=== PATIENT | female | born 1965 | race Caucasian/White ===

== ENCOUNTER → 2016-06-30 | Outpatient (CLI) | payer BC ==
[~2016-06-30] MED LIST: AMITRIPTYLINE H10 M1; AMITRIPTYLINE H50 M1 PO; B-121000 MCG PO; CYMBALTA 30MG30 MG PO; CYMBALTA 60MG60 MG PO; MOTRIN 200200 MG/TAB PO; NEURONTIN400 MG/CAP PO; NEURONTIN600 MG/TAB PO; NORCO 325 MG-51 TAB PO; PERCOCET 325 MG1 TA2 PO; PRILOSEC 20MG20 MG PO; PROTONIX 40MG T40 MG PO; XANAX .25M0.25 MG/TA PO; ZANTAC 150MG T150 MG PO
[2016-06-30 12:37] LABS: HEMATOCRIT 38.4 % (37.0-47.0); HEMOGLOBIN 12.8 g/dl (12.5-16.0); MEAN CELL VOLUME 86 fl (80.0-100.0); MEAN CORPUSCULAR HEMOGLOBIN 29 pg (27.0-31.0); MEAN CORPUSCULAR HGB CONC 33 g/dl (33.0-37.0); MEAN PLATELET VOLUME 10.1 fl (7.4-10.4); PLATELET COUNT 358 K/mm3 (130-400); RED BLOOD COUNT 4.46 M/mm3 (4.10-5.30); REDCELL DISTRIBUTION WIDTH-CV 14.8 % (11.5-14.5); WHITE BLOOD COUNT 9.7 K/mm3 (4.8-10.8)
[2016-06-30 13:04] LABS: INFLUENZA B NEGATIVE
[2016-06-30 13:31] LABS: ADD PATHOLOGY DIFF REVIEW NO
[2016-06-30 13:39] LABS: BAND 2 % (0-10); BASOPHIL 2 % (0-2); EOSINOPHIL 4 % (0-4); METAMYELOCYTE 1 % (0-0); NEUTROPHILS 53 % (42.0-75.2); POIKILOCYTOSIS 1+; TOTAL CELLS COUNTED 100
[2016-06-30 13:40] LABS: ANISOCYTOSIS 1+; POLYCHROMASIA 1+
[2016-07-01 17:35] LABS: PROCALCITONIN <0.05 ng/mL (0.00-0.09)
== END ==
LOC: COL.LAB 11:23
PROVIDERS: Internal Medicine Pulmonary Disease
DX: R06.02 Shortness of breath (principal); R05 Cough

== ENCOUNTER → 2016-07-18 | Outpatient (REF) | LOC: WSOH 11:30 | DX: Z01.89 Encounter for other specified special examinations (principal) | CPT/HCPCS: G0463 ==

== ENCOUNTER → 2016-08-19 | Outpatient (REF) | LOC: WSOH 10:30 | DX: Z02.89 Encounter for other administrative examinations (principal) ==

== ENCOUNTER → 2016-10-06 | Outpatient (REF) | LOC: WSOH 10:05 | DX: Z02.89 Encounter for other administrative examinations (principal) ==

== ENCOUNTER 2017-06-16 09:26 | Emergency (ER) | payer BC ==
[~2017-06-16] VITALS: Ht 175.3 cm; Wt 110.0 kg
[~2017-06-16 09:26] MED LIST changes: -NEURONTIN400 MG/CAP PO
[2017-06-16 09:27] VITALS: TEMP 97
[2017-06-16] MEDS ORDERED: REQUIP 1MG T1 MG/TAB PO (09:33)
[2017-06-16] MEDS ORDERED: NORCO 325 MG-51 TAB PO (10:29)
[2017-06-16 11:05] VITALS: BP 140/81; PULSE 85
== END 2017-06-16 11:05 | disposition home or self-care (01) ==
LOC: COL.ER 09:26
DX: S63.502A Unspecified sprain of left wrist, initial encounter (principal); S63.642A Sprain of metacarpophalangeal joint of left thumb, initial encounter; X50.0XXA Overexertion from strenuous movement or load, initial encounter
CPT/HCPCS: Q4021

== ENCOUNTER → 2017-08-03 | Outpatient (CLI) | payer BC ==
[~2017-08-03] VITALS: Ht 172.7 cm; Wt 111.8 kg
[~2017-08-03] MED LIST changes: +REQUIP 1MG T1 MG/TAB PO; +VITAMIN D31000 IU PO
[2017-08-03 13:20] VITALS: BP 122/80; PULSE 80
== END ==
LOC: LIGHT
DX: M15.9 Polyosteoarthritis, unspecified (principal); Z98.84 Bariatric surgery status; M54.5 Low back pain; K21.9 Gastro-esophageal reflux disease without esophagitis; Z68.37 Body mass index [BMI] 37.0-37.9, adult; Z71.3 Dietary counseling and surveillance
CPT/HCPCS: G0463

== ENCOUNTER 2017-08-05 20:45 | Observation (INO) | payer BC ==
[~2017-08-05] VITALS: Ht 172.7 cm; Wt 112.3 kg
[2017-08-05] MEDS ORDERED: NEURONTIN400 MG/CAP PO ×2 (23:40)
[2017-08-05 23:43] VITALS: BP 120/60; PULSE 75; TEMP 97.8
[2017-08-05] MEDS ORDERED: REQUIP0.25 MG PO (23:48)
[2017-08-06 04:59] VITALS: BP 110/58; PULSE 80; TEMP 98.3
[2017-08-06 08:37] VITALS: BP 102/46; PULSE 78; TEMP 98.4
[2017-08-06 12:55] VITALS: BP 134/74; BP 94/39; PULSE 72; TEMP 98.1
[2017-08-06 16:51] VITALS: BP 109/57; PULSE 77; TEMP 98.5
[2017-08-06 19:52] VITALS: BP 115/58; PULSE 90; TEMP 98.3
[2017-08-06 23:42] VITALS: BP 104/48; PULSE 79; TEMP 98.6
[2017-08-07 03:21] VITALS: BP 113/60; PULSE 71; TEMP 97.9
[2017-08-07 07:53] VITALS: BP 141/68; PULSE 75; TEMP 98.4
== END 2017-08-07 09:05 | disposition home or self-care (01) ==
LOC: COL.ER 20:45 → MEDICAL 22:20
DX: S06.0X1A Concussion with loss of consciousness of 30 minutes or less, initial encounter (principal); W22.8XXA Striking against or struck by other objects, initial encounter; Y92.007 Garden or yard of unspecified non-institutional (private) residence as the place of occurrence of the external cause; Z79.899 Other long term (current) drug therapy
CPT/HCPCS: G0378; G0379; J1170; J2405; J7030

== ENCOUNTER → 2018-02-11 | Outpatient (CLI) | payer BC ==
[~2018-02-11] MED LIST changes: +NEURONTIN400 MG/CAP PO; +REQUIP0.25 MG PO
== END ==
LOC: COL.RAD 13:40
DX: M51.16 Intervertebral disc disorders with radiculopathy, lumbar region (principal)

== ENCOUNTER → 2018-03-23 | Outpatient (CLI) | payer BC | LOC: MHCPAIN 10:28 | DX: G89.29 Other chronic pain (principal); M47.817 Spondylosis without myelopathy or radiculopathy, lumbosacral region; M53.3 Sacrococcygeal disorders, not elsewhere classified | CPT/HCPCS: G0463 ==

== ENCOUNTER → 2018-04-01 | Outpatient (CLI) | payer BC | LOC: MHCPAIN 09:14 | DX: M47.817 Spondylosis without myelopathy or radiculopathy, lumbosacral region (principal); M54.16 Radiculopathy, lumbar region | CPT/HCPCS: J1040; Q9967 ==

== ENCOUNTER → 2018-04-27 | Outpatient (CLI) | payer BC | LOC: MHCPAIN 10:33 | DX: G89.29 Other chronic pain (principal); M47.817 Spondylosis without myelopathy or radiculopathy, lumbosacral region; M53.3 Sacrococcygeal disorders, not elsewhere classified | CPT/HCPCS: G0463 ==

== ENCOUNTER → 2018-10-12 | Outpatient (CLI) | payer BC | LOC: MHCPAIN 11:16 | DX: G89.29 Other chronic pain (principal); M47.817 Spondylosis without myelopathy or radiculopathy, lumbosacral region; M53.3 Sacrococcygeal disorders, not elsewhere classified | CPT/HCPCS: G0463 ==

== ENCOUNTER → 2018-10-25 | Outpatient (CLI) | payer BC | LOC: MHCPAIN 12:48 | DX: M47.817 Spondylosis without myelopathy or radiculopathy, lumbosacral region (principal); M54.16 Radiculopathy, lumbar region ==

== ENCOUNTER → 2019-01-13 | Outpatient (CLI) | payer BC | LOC: MHCPAIN 07:25 | DX: G89.29 Other chronic pain (principal); M47.817 Spondylosis without myelopathy or radiculopathy, lumbosacral region; M54.5 Low back pain | CPT/HCPCS: G0463; J1100; J2250; J3010 ==

== ENCOUNTER → 2019-01-17 | Outpatient (CLI) | payer BC | LOC: MHCPAIN 12:08 | DX: M54.5 Low back pain (principal) | CPT/HCPCS: J1100; J2250; J3010 ==

== ENCOUNTER → 2019-07-20 | Outpatient (CLI) | payer BC | LOC: MHCPAIN 10:03 | DX: M47.817 Spondylosis without myelopathy or radiculopathy, lumbosacral region (principal); M54.5 Low back pain; M53.3 Sacrococcygeal disorders, not elsewhere classified; G89.29 Other chronic pain | CPT/HCPCS: G0463 ==

== ENCOUNTER 2019-12-19 14:03 | Emergency (ER) | payer BC ==
[~2019-12-19] VITALS: Ht 175.3 cm; Wt 103.2 kg
[2019-12-19 14:16] VITALS: TEMP 97.7
[2019-12-19] MEDS ORDERED: CYMBALTA 60MG60 MG PO (18:04)
[2019-12-19 18:05] LABS: BASO # 0.1 (0.0-0.2); EOS # 0.1 (0.0-0.7); EOS % 1.4 % (0-4.0); GRAN # 4.3 (1.4-6.5); GRAN % 61.3 % (42.2-75.2); HEMATOCRIT 37.5 % (37.0-47.0); HEMOGLOBIN 13.1 g/dl (12.5-16.0); LYMPH # 2.2 (1.2-3.4); LYMPH % 30.6 % (20.0-51.0); MEAN CELL VOLUME 87 fl (80.0-100.0); MEAN CORPUSCULAR HEMOGLOBIN 31 pg (27.0-31.0); MEAN CORPUSCULAR HGB CONC 35 g/dl (33.0-37.0); MEAN PLATELET VOLUME 10.1 fl (7.4-10.4); MONO # 0.4 (0.1-0.6); MONO % 4.9 % (1.7-9.3); PLATELET COUNT 318 K/mm3 (130-400); RED BLOOD COUNT 4.29 M/mm3 (4.10-5.30)
[2019-12-19] MEDS ORDERED: VALIUM 10MG10 MG/TAB PO (18:05)
[2019-12-19 18:20] LABS: ALANINE AMINOTRANSFERASE 9 U/L (4-34); ALBUMIN 4.2 gm/dL (3.5-5.0); ALKALINE PHOSPHATASE 67 U/L (50-136); ANION GAP 9 mmol/L (7-16); AST,SGOT 21 U/L (15-37); BILIRUBIN,TOTAL 0.6 mg/dL (0.0-1.0); BLOOD UREA NITROGEN 11 mg/dL (7-17); CALCIUM 8.9 mg/dL (8.4-10.2); CARBON DIOXIDE 26 mmol/L (22-30); CHLORIDE 102 mmol/L (98-107); GLUCOSE 92 mg/dL (74-106); POTASSIUM 3.9 mmol/L (3.4-5.0); SODIUM 137 mmol/L (137-145); TOTAL PROTEIN 7.3 gm/dL (6.4-8.2)
[2019-12-19 18:47] LABS: C-REACTIVE PROTEIN < 0.5 mg/dL (0.0-0.9)
[2019-12-19 18:57] LABS: STREP SCREEN NEGATIVE
[2019-12-19 19:55] VITALS: BP 145/87; PULSE 67
== END 2019-12-19 19:55 | disposition home or self-care (01) ==
LOC: COL.ER 14:03
PROVIDERS: Emergency Medicine
DX: B34.9 Viral infection, unspecified (principal); Z20.828 Contact with and (suspected) exposure to other viral communicable diseases; Z88.0 Allergy status to penicillin; Z88.1 Allergy status to other antibiotic agents; Z88.5 Allergy status to narcotic agent
CPT/HCPCS: J1885; J2405; J3010; J7030